=== PATIENT | male | born 1975 | race Caucasian/White ===

== ENCOUNTER 2023-02-06 20:59 | Emergency (ER) | payer MEDICAID, SELFPAY ==
--- NOTE | ~2023-02-06 | XR_ITS ---
Clinical Indication: Chest pain AP and lateral views of the chest: Comparison: None Findings: Probable bibasilar nipple shadows noted. The lungs are otherwise clear, without evidence of focal consolidation or pleural effusion. Cardiomediastinal silhouette is within normal limits. Bone s and soft tissues are unremarkable. Impression: Probable bibasilar nipple shadows, otherwise clear lungs. Consider repeat exam with nipple markers to confirm. Reviewed, dictated and finalized at location M. Impression: Probable bibasilar nipple shadows, otherwise clear lungs. Consider repeat exam with nipple markers to confirm.
[2023-02-06 21:03] VITALS: BP 157/97; PULSE 88; RESP 18; TEMP 36.7; O2SAT 100
[2023-02-06 21:54] VITALS: BP 131/82; PULSE 70
[2023-02-06 21:55] VITALS: BP 121/89; PULSE 86
[2023-02-06 21:56] VITALS: BP 113/81; PULSE 93
--- NOTE | 2023-02-06 22:12 | PC.NURSE ---
Pt reports blood pressure of 156/100 at home. States he took himself off his blood pressure medications a few months ago and has been getting very dizzy with position changes. States his daughter in June of 2022 and I just didn't want to live after that . He denies suicidal ideation or thoughts of self harm to this RN. Pt also reports left sided chest pain that radiated down his left arm. Onset was 2014 and lasted about 30 minutes before it resolved on it's own. He denies any chest pain or SOB at this time. Pt admits to using IV drugs since his daughter passed. States he last used 3 days ago.
[2023-02-06 22:17] VITALS: PULSE 66
--- NOTE | 2023-02-06 22:26 | ECG_ITS ---
Measurements Intervals [place] Rate: 76 P: 59 RI: 156 QRS: 53 QRSD: 101 T: 55 QT: 391 QTc: 440 Interpretive Statements SINUS RHYTHM NORMAL ECG NO PREVIOUS ECG AVAILABLE FOR COMPARISON Electronically Signed On 02-07-2023 6:44:54 CDT by Artur Painter D.O.
--- NOTE | 2023-02-06 22:57 | ED.GENADULT ---
HPI - General Adult General Chief complaint: Recheck/Abnormal Lab/Rx <Susanne Lu PA-C - Last Filed: 02/07/23 03:24> Stated complaint: htn <TATIANA Pardo Last Filed: 02/07/23 03:24> Time Seen by Provider: 02/06/23 22:28 <TATIANA Pardo Last Filed: 02/07/23 03:24> Source: patient <TATIANA Pardo Last Filed: 02/07/23 03:24> Mode of arrival: ambulatory <TATIANA Pardo Last Filed: 02/07/23 03:24> Limitations: no limitations <TATIANA Pardo Last Filed: 02/07/23 03:24> History of Present Illness HPI narrative: Patient is a 47 y/o male who presents to the ED with multiple complaints. Patient reports having dizziness and lightheadedness with movement for the past several months, worse over the last few days. He has also had intermittent shortness of breath, occasionally worse with exertion over the last couple of days. He had an episode of left-sided chest pain into his left upper extremity around 7:30 AM this morning. Pain lasted for approximately 30 minutes before resolving on its own. Patient took his blood pressure at home and noted it to be elevated into the 160s systolic. He does have history of hypertension and was previously on amlodipine but states he took himself off of this several months ago. He further endorses occasional headaches, but denies vision changes, blurry vision, pleuritic pain, abdominal pain, nausea, vomiting, lower extremity pain or swelling, syncope, weakness, numbness. Patient reports he lost his daughter last May after a traumatic motorcycle accident. He lost his father 3 months before that. He has been increasingly depressed, fatigued, apathetic. He endorses daily suicidal ideation, but states he has never intended to act on this or have a plan currently. He is not currently on any psychiatric medications. Does not have a PCP. <TATIANA Pardo Last Filed: 02/07/23 03:24> Review of Systems Review of Systems: CONSTITUTIONAL: Denies fever, chills, or sweats. EYES: Denies visual changes. CARDIOVASCULAR: See HPI. RESPIRATORY: See HPI. GASTROINTESTINAL: Denies abdominal pain, nausea, vomiting. NEUROLOGIC: See HPI. PSYCHIATRIC: See HPI. <Susanne Lu PA-C - Last Filed: 02/07/23 03:24> All systems reviewed & are unremarkable except as noted in HPI and below <Susanne Lu PA-C - Last Filed: 02/07/23 03:24> PMFSH Past Medical History Medical History: Medical History (Updated 02/08/23 @ 00:00 by Lavonne Zendona) HTN (hypertension) <Susanne Lu PA-C - Last Filed: 02/07/23 03:24> Surgical History Surgical History: Surgical History (Updated 02/07/23 @ 00:43 by Susanne Lu PA-C) No pertinent past surgical history <Susanne Lu PA-C - Last Filed: 02/07/23 03:24> Social History Social History: Social History (Updated 02/07/23 @ 00:43 by Susanne Lu PA-C) Smoking status: Current every day smoker Substance use: current Substance use type: marijuana, IV drugs and methamphetamine <Susanne Lu PA-C - Last Filed: 02/07/23 03:24> Exam Narrative: GENERAL: Well appearing, well-nourished, non-toxic, in no acute distress. HEAD: Normocephalic, atraumatic. ENT: Poor dentition. MMs somewhat dry. NECK: Supple. No adenopathy, no masses. RESPIRATORY: Airway patent, respirations nonlabored. Clear to auscultation bilaterally, no rales, rhonchi, wheezing. No pain with inspiration. CARDIOVASCULAR: Regular rate and rhythm without murmurs, rubs, or gallops. Peripheral pulses 2+ and equal bilaterally. ABDOMINAL: Soft, no tenderness throughout abdomen, nondistended, no hepatosplenomegaly. Normoactive BS. MUSCULOSKELETAL: Moves all extremities. Strength/ROM intact without gross deformities. No chest wall tenderness to palpation. No edema. No calf tenderness. SKIN: Warm, dry, normal color. No
--- NOTE | 2023-02-06 23:01 | PC.NURSE ---
Pt admitted to ED provider Susanne JIMENEZ that he is having current suicidal ideation without a plan. Pt is currently in radiology. Pt will change into paper scrubs when he returns to department.
[2023-02-06 23:02] LABS: Basophils Absolute Auto 0.1 K/mm3 (0.0-0.1); Eosinophils Absolute Auto 0.2 K/mm3 (0-0.3); Eosinophils Percent Auto 2.9 % (0-4.4); Hematocrit 49.1 % (42.0-52.0); Hemoglobin 16.4 g/dL (14.0-18.0); Immature Granulocyte Absolute 0.04 K/mm3 (0.00-0.031); Immature Granulocyte Percent A 0.6 % (0-0.5); Lymphocytes Absolute Auto 1.82 K/mm3 (0.9-3.2); Lymphocytes Percent Auto 26.8 % (18.3-44.2); Mean Corpuscular HGB Conc 33.4 g/dl (32-36); Mean Corpuscular Hemoglobin 32.4 pg (26-34); Mean Platelet Volume 8.3 fl (7.4-10.4); Monocytes Absolute Auto 0.7 K/mm3 (0.1-0.6); Monocytes Percent Auto 10.1 % (2.6-8.5); Neutrophils Percent Auto 58.6 % (45.5-73.1); Platelet Count Result 328 k/mm3 (150-375); Red Blood Count 5.06 M/mm3 (4.6-6.20); Red Cell Distribution Width 13.5 % (11.5-14.5); White Blood Count 6.8 K/mm3 (4.5-10.0)
--- NOTE | 2023-02-06 23:12 | PC.NURSE ---
Pt changed out of hospital gown and jeans and into paper scrubs. Belongings locked up in nurse's station. Pysch processed explained to pt. Informed pt that we need to collect a urine sample. Pt states he cannot go right now. Water given for pt to drink and explained that if he cannot produce urine sample we will need to straight cath him. Pt refuses straight cath. Charge nurse notified that pt has been placed on suicide precautions.
[2023-02-06 23:16] LABS: Alanine Aminotransferase 90 U/L (6-50); Albumin Level 4.1 g/dL (3.5-5.1); Alkaline Phosphatase 140 U/L (38-126); Anion Gap 7 mmol/L (8-16); Aspartate Amino Transferase 61 U/L (17-59); Bilirubin,Total 0.4 mg/dL (0.2-1.3); Blood Urea Nitrogen 19 mg/dL (9-20); Carbon Dioxide 30 mmol/L (22-30); Chloride 104 mmol/L (98-107); D Dimer 0.38 ug/mL (<0.48); Estimated CRCL calculation 68 ml/min; Estimated Glomerular Filt Rate > 60; Glucose 117 mg/dL (65-110); Potassium 4.2 mmol/L (3.4-5.0); Sodium 141 mmol/L (137-145)
[2023-02-06 23:17] LABS: Acetaminophen < 10 ug/mL (10-30); Ethanol < 10 mg/dL (<10); Salicylate < 1.0 mg/dL (2-20)
[2023-02-06] MEDS: SODIUM CHLORIDE 0.9% IV 1,000 ML 999 ML IV CONT (23:17)
[2023-02-06 23:21] VITALS: BP 131/87; PULSE 74; RESP 18; O2SAT 100
--- NOTE | 2023-02-06 23:35 | PC.NURSE ---
Pt still cannot provide urine sample at this time. Informed him that we need urine to medically clear him and the longer it takes to provide urine sample the longer he'll be in the ED. Pt verbalized understanding.
--- NOTE | 2023-02-06 23:43 | PC.NURSE ---
Taco in lab notified of added troponin.
[2023-02-06 23:46] LABS: Thyroid Stimulating Hormone 0.906 uIU/mL (0.465-4.680)
[2023-02-06 23:58] LABS: Appearance Urine Clear (Clear); Bilirubin Urine Negative (Negative); Blood Urine Negative (Negative); Color Urine Yellow (Yellow); Glucose Urine UA Negative (Negative); Ketones Urine Negative (Negative); Leukocyte Esterase Ur Negative LEU/UL (Negative); Nitrate Urine Negative (Negative); Protein Urine Negative (Negative); Specific Grav Ur 1.026 (1.001-1.035)
[2023-02-06 23:59] LABS: Add Urine Microscopic? NO
[2023-02-07] VITALS (7 sets, daily range): BP systolic 115–132; BP diastolic 78–89; PULSE 78–92; RESP 20; O2SAT 98
[2023-02-07 00:07] LABS: Troponin I < 0.012 ng/mL (0.000-0.034)
[2023-02-07 00:14] LABS: Barbiturate Screen Urine Negative (Negative); Benzodiazepines Screen Urine Negative (Negative)
[2023-02-07 00:20] LABS: Cannabinoid Screen Urine Positive (Negative); Cocaine Screen Urine Negative (Negative); Methadone Screen Urine Negative (Negative); Opiate Screen Urine Negative (Negative); Phencyclidine Screen Urine Negative (Negative)
[2023-02-07 00:35] LABS: Amphetamine Screen Urine Positive (Negative)
[2023-02-07] MEDS: SODIUM CHLORIDE 0.9% IV 1,000 ML 999 ML (00:36)
[2023-02-07 01:08] LABS: SARS-CoV-2 RNA PCR Negative (Negative)
--- NOTE | 2023-02-07 01:30 | PC.NURSE ---
Crisis called at this time. Spoke with Chase.
== END 2023-02-07 03:19 | disposition home or self-care (01) ==
PROVIDERS: Emergency Provider Physician Assistant
DX: R07.89 Other chest pain (principal); R45.851 Suicidal ideations; F32.A Depression, unspecified; F19.10 Other psychoactive substance abuse, uncomplicated; F43.21 Adjustment disorder with depressed mood; Z20.822 Contact with and (suspected) exposure to COVID-19; I10 Essential (primary) hypertension; F17.200 Nicotine dependence, unspecified, uncomplicated
CPT/HCPCS: 36415; 71046; 80053; 80307; 81003; 84443; 84484; 85025; 85380; 87635; 93005; 96360; 96361; 99284; J7030; U0005